=== PATIENT | male | born 1985 | race Caucasian/White ===

== ENCOUNTER 2022-01-18 19:28 | Emergency (ER) | payer OTHER, SELFPAY ==
--- NOTE | ~2022-01-18 | CT_ITS ---
EXAMINATION: CT CHEST WITHOUT CONTRAST CT ABDOMEN AND PELVIS WITH CONTRAST CLINICAL INFORMATION: Trauma COMPARISON: No pertinent prior studies are available for comparison. TECHNIQUE: Multidetector volumetric imaging was performed from the thoracic inlet through the diaphragm without intravenous contrast. Following intravenous contrast administration, multidetector volumetric imaging was obtained from the diaphragm through the pubic symphysis. A total of 85 mL Omnipaque 300 was administered intravenously. Sagittal and coronal images were reformatted. This CT examination was performed using dose optimization techniques as appropriate, variously including the following: *Automated exposure control *Adjustment of mA and/or kV according to patient size (this includes techniques or standardized protocols for targeted exams where dose is matched to indication/reason for exam; i.e. extremities or head) *Use of iterative reconstruction technique DOSE: 820 mGy-cm FINDINGS: -CHEST- LUNG: A few small calcified granulomas are evident in the left perihilar region at the lingula. No consolidation. Central airways are clear. No noncalcified pulmonary nodules. MEDIASTINUM: The mediastinum in normal. The central vascular structures are unremarkable. No hilar or mediastinal lymphadenopathy. PERICARDIUM/PLEURA: No significant effusion. No pleural mass or thickening. CHEST WALL/AXILLA: Unremarkable. -ABDOMEN/PELVIS- LIVER, GALLBLADDER, BILIARY TREE: Relative hypoattenuation of the hepatic parenchyma is consistent with steatosis. The liver is normal in size and shape. No focal hepatic lesion or biliary ductal dilatation is present. The gallbladder is unremarkable with no evidence of radiopaque gallstones, gallbladder wall thickening, or obvious pericholecystic inflammatory changes. PANCREAS: Normal; no mass or surrounding fluid. SPLEEN: Normal size. No focal lesion. ADRENAL GLANDS: Normal; no mass. KIDNEYS AND URETERS: The kidneys are normal in size, shape, and attenuation. No hydronephrosis, hydroureter, or calculi seen. No perinephric stranding. BLADDER: Unremarkable. GASTROINTESTINAL TRACT: Stomach, small bowel, and colon are normal in caliber. No bowel wall thickening or surrounding inflammatory changes. Appendix is normal. No intraperitoneal free fluid or free air. ABDOMINAL WALL: No significant hernia is appreciated. VASCULATURE: Aorta is normal in size. No significant calcific atherosclerotic disease. LYMPH NODES: No lymphadenopathy. . PELVIC VISCERA: The prostate and seminal vesicles are unremarkable. OSSEUS STRUCTURES: No acute fracture or malalignment. Small degenerative osteophytes at the hips. The thoracolumbar spine appears intact without fracture or abnormal alignment. No fractures are identified in the imaged appendicular skeleton. Osseous pelvis is intact. There is a small focus of soft tissue swelling just superficial to the sacrum at the S5 level which may be traumatic in nature. CT/CT abdomen pelvis w con IMPRESSION: Mild focal soft tissue swelling superficial to the S5 segment in the midline, possibly due to soft tissue contusion or a very small hematoma. Otherwise, no acute traumatic injuries are identified in the chest, abdomen, and pelvis. Bones are intact. Hepatic steatosis.
--- NOTE | ~2022-01-18 | CT_ITS ---
. EXAMINATION: CT HEAD WITHOUT CONTRAST CT CERVICAL SPINE WITHOUT CONTRAST CT MAXILLOFACIAL WITHOUT CONTRAST CLINICAL INFORMATION: Trauma. COMPARISON: None. TECHNIQUE: Multidetector volumetric imaging of the head was performed without the administration of intravenous contrast. Images were also obtained with through the cervical spine as well as the facial bones from the frontal sinuses through the mandible. Multiplanar reconstructed images in coronal and sagittal orientations were submitted. This CT examination was performed using dose optimization techniques as appropriate, variously including the following: *Automated exposure control *Adjustment of mA and/or kV according to patient size (this includes techniques or standardized protocols for targeted exams where dose is matched to indication/reason for exam; i.e. extremities or head) *Use of iterative reconstruction technique DOSE: 1386 mGy-cm FINDINGS: HEAD: There is no evidence of acute intracranial hemorrhage or territorial infarction. No abnormal mass-effect or midline shift. No extra-axial fluid collections. Davis to white matter differentiation is well preserved. The ventricles are normal in size and configuration. There is no abnormal attenuation within the brain parenchyma. Calvarium and skull base appear intact. Mastoid air cells are clear. Costophrenic thickening is evident within the ethmoid air cells. There is a polypoid focus in the left maxillary sinus which may correspond to a mucosal retention cyst or polyp. MAXILLOFACIAL: There is a comminuted fracture of the nasal bone with leftward displacement of the fragments. Surrounding soft tissues are swollen and edematous. No additional fractures are identified. There are prominent dental caries at the left second and third mandibular molars with significant periapical osteolysis. The majority of the crown portions of both teeth are eroded. Periapical lucencies consistent with periapical abscess. A few additional dental caries are noted. No additional periapical abscesses. No acute fractures are identified at the mandible, maxilla, pterygoid plates, zygomatic arches, paranasal sinus rahman, and bony orbits are intact. No acute osseous abnormality within the maxillofacial region. Small plate and screw fixation constructs are evident in the mandible at the right diminutive body and left ramus. Hardware is intact. No acute fractures in these regions. As noted above, there is mild mucosal thickening in ethmoid sinuses and a small polypoid focus of soft tissue in the left maxillary sinus, possibly a mucosal retention cyst or polyp. Orbital soft tissues are unremarkable. No post septal abnormalities. Oropharynx and nasopharynx are unremarkable. CERVICAL SPINE: Vertebral body heights are normal. No fractures of the vertebral bodies or posterior elements. Reversal of the normal cervical lordosis is likely positional or degenerative. No vertebral body or posterior element subluxation. The craniocervical and atlantoaxial articulations are normal. There is mild to moderate degenerative disc disease at C5-C6 with endplate and uncovertebral osteophytes and mild loss of intervertebral disc head. A posterior disc osteophyte complex produces mild to moderate central canal stenosis at this level. There is a posterior disc protrusion at the C6-C7 level which also likely produces mild to moderate central canal stenosis. Facet joints are normal. Uncovertebral osteophytes produce neural foraminal encroachment at C5-C6 bilaterally, right side greater than left. No significant paravertebral soft tissue swelling. Cervical soft tissues are unremarkable. Imaged portions of the lung apices are clear. CT/CT cervical spine wo con IMPRESSION: 1. No acute intracranial pathology. 2. Comminuted and mildly displaced fracture of the nasal bone with surrounding soft tissue swelling. 3. No acute fracture or acute malalignment in the cervical spine. 4. Dental caries and apical periodontitis at the left second and third mandibular molars. 5. Mild to moderate degenerative disc disease at C5-C6 with bilateral neural foraminal encroachment. Mild to moderate central canal stenoses are suspected at C5-C6 and C6-C7.
[2022-01-18 20:16] VITALS: BP 103/80; PULSE 123; RESP 24; TEMP 37; O2SAT 96; BMI 26.6
--- NOTE | 2022-01-18 20:27 | ECG_ITS ---
Test Reason : HEAD INJURY Blood Pressure : / mmHG Vent. Rate : 092 BPM Atrial Rate : 092 BPM P-R Int : 126 ms QRS Dur : 080 ms QT Int : 348 ms P-R-T Axes : 064 066 066 degrees QTc Int : 430 ms Normal sinus rhythm Septal infarct , age undetermined Abnormal ECG No previous ECGs available Referred By: Cassidy Gallardo Electronically Signed By:JARED MCKENNA
[2022-01-18] MEDS: iohexoL 300 MG/ML 100 ML INFUS..BTL IV (20:56)
[2022-01-18 21:00] VITALS: BP 132/87; PULSE 98; RESP 16; TEMP 37.2; O2SAT 94
[2022-01-18 21:25] LABS: Basophils Percent Auto 0.2 % (0-2); Eosinophils Percent Auto 0.1 % (0-4); Hematocrit 41.6 % (42.0-52.0); Hemoglobin 14.4 g/dl (14.0-18.0); Imm Gran Pct Auto 0.6 % (0.0-0.4); Lymphocytes Absolute Auto 1.6 X10*3/uL (1.2-4.9); Lymphocytes Percent Auto 9.7 % (20-40); MANUAL DIFF FLAG SCAN; Mean Corpuscular HGB Conc 34.6 g/dl (31.0-36.0); Mean Corpuscular Hemoglobin 31.9 pg (27.0-33.0); Mean Corpuscular Volume 92.2 fL (80.0-98.0); Mean Platelet Volume 8.9 fL (9.4-12.4); Monocytes Absolute Auto 1.9 X10*3/uL (0.1-1.2); Monocytes Percent Auto 11.3 % (2-11); Neutrophils Absolute Auto 13.2 x10*3/uL (2.0-8.3); Neutrophils Percent Auto 78.1 % (45-73); Platelet Count 274 X10*3/uL (160-400); Red Blood Count 4.51 X10*6/uL (4.60-5.80); Red Cell Distribution Width 13.3 % (11.0-16.0); SCAN SMEAR FLAG 1; White Blood Count 16.9 X10*3/uL (4.8-10.8)
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
[2022-01-18 21:38] LABS: Anion Gap 12 (12-20); Blood Urea Nitrogen 8 mg/dL (9-16); Calcium 8.7 mg/dL (8.4-10.2); Carbon Dioxide 25 mmol/L (22-29); Chloride 99 mmol/L (96-108); Creatinine Clr Calc Pharmacy 108.3; Estimated Glomerular Filt Rate > 60; Glucose Random 106 mg/dL (60-115); Potassium 3.8 mmol/L (3.3-5.1); Sodium 132 mmol/L (135-145)
[2022-01-18 21:43] LABS: SLIDE REVIEW VERIFIED
[2022-01-18 21:46] LABS: Troponin-I High Sensitivity < 3.5 ng/L (<3.5-35.0)
[2022-01-18 21:57] VITALS: RESP 16
[2022-01-18] MEDS: Diphth,Pertus(ACell),Tet Adult 0.5 ML SYRINGE IM (21:57)
[2022-01-18] MEDS: Morphine Sulfate 4 MG/ML CARTRIDGE IVPUSH (21:57)
[2022-01-18] MEDS: ondansetron HCL 4 MG/2 ML VIAL IVPUSH (21:58)
[2022-01-18] MEDS: 0.9 % Sodium Chloride 1,000 ML 999 ML IVCONT (21:58)
[2022-01-18 22:08] VITALS: BP 117/68; PULSE 96; RESP 15; TEMP 37.9; O2SAT 92
[2022-01-18] MEDS: Acetaminophen 325 MG TABLET 650 MG PO (23:23)
[2022-01-18] MEDS: Amoxicillin/Potassium Clav 875 MG TABLET PO (23:23)
[2022-01-18] MEDS: oxyCODONE HCl Immed Release 5 MG TABLET PO (23:24)
== END 2022-01-19 00:41 | disposition home or self-care (01) ==
PROVIDERS: Nurse Practitioner Family; Emergency Provider Emergency Medicine; PCP Internal Medicine
DX: S06.0X0A Concussion without loss of consciousness, initial encounter (principal); S02.2XXA Fracture of nasal bones, initial encounter for closed fracture; S00.31XA Abrasion of nose, initial encounter; K04.7 Periapical abscess without sinus; Y04.2XXA Assault by strike against or bumped into by another person, initial encounter; Y93.9 Activity, unspecified; Y92.410 Unspecified street and highway as the place of occurrence of the external cause; Y99.9 Unspecified external cause status
CPT/HCPCS: 36415; 70450; 70486; 71250; 72125; 74177; 80048; 84484; 85025; 90471; 90715; 93005; 96361; 96374; 96375; 99283; 99284; J2270; J2405; Q9967

== ENCOUNTER 2022-01-19 04:46 | Emergency (ER) | payer OTHER, SELFPAY ==
[2022-01-19 04:56] VITALS: BMI 25.0
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
[2022-01-19] MEDS: oxyCODONE HCl Immed Release 5 MG TABLET PO (05:24)
[2022-01-19 05:49] LABS: COVID-19 Test Negative (Negative)
== END 2022-01-19 07:12 | disposition home or self-care (01) ==
PROVIDERS: Emergency Provider Emergency Medicine
DX: S02.2XXA Fracture of nasal bones, initial encounter for closed fracture (principal); R51.9 Headache, unspecified; Y04.8XXA Assault by other bodily force, initial encounter; Y93.9 Activity, unspecified; Y92.9 Unspecified place or not applicable; Y99.9 Unspecified external cause status; Z20.822 Contact with and (suspected) exposure to COVID-19; Z79.899 Other long term (current) drug therapy
CPT/HCPCS: 87635; 99282; 99283

== ENCOUNTER 2022-01-25 09:31 | Emergency (ER) | payer OTHER, SELFPAY ==
--- NOTE | ~2022-01-25 | XR_ITS ---
EXAMINATION: XR CHEST CLINICAL INFORMATION: Chest wall pain COMPARISON: Previous chest CT 01/18/2022 TECHNIQUE: 2 views of the chest were obtained. FINDINGS: No significant abnormality is noted involving the heart, lungs, mediastinum, or soft tissues. There are mild degenerative changes of the spine. XR/XR chest 2V IMPRESSION: No evidence for acute disease in the chest.
[2022-01-25 09:46] VITALS: BP 127/45; PULSE 74; RESP 16; TEMP 35.7; O2SAT 97; BMI 25.8
--- NOTE | 2022-01-25 09:58 | ECG_ITS ---
Test Reason : cp Blood Pressure : / mmHG Vent. Rate : 070 BPM Atrial Rate : 070 BPM P-R Int : 128 ms QRS Dur : 082 ms QT Int : 398 ms P-R-T Axes : 079 078 070 degrees QTc Int : 429 ms Normal sinus rhythm Normal ECG When compared with ECG of 18-JAN-2022 21:01, Criteria for Septal infarct are no longer Present Referred By: Generic ED Physician Electronically Signed By:Spencer Hay
[2022-01-25 10:12] LABS: MANUAL DIFF FLAG NO
[2022-01-25 10:16] LABS: Basophils Percent Auto 0.4 % (0-2); Eosinophils Absolute Auto 0.2 X10*3/uL (0.0-0.4); Eosinophils Percent Auto 2.5 % (0-4); Hematocrit 38.8 % (42.0-52.0); Hemoglobin 13.4 g/dl (14.0-18.0); Imm Gran Abs Auto 0.04 X10*3/uL (0.00-0.03); Imm Gran Pct Auto 0.5 % (0.0-0.4); Lymphocytes Absolute Auto 1.3 X10*3/uL (1.2-4.9); Lymphocytes Percent Auto 16.2 % (20-40); Mean Corpuscular HGB Conc 34.5 g/dl (31.0-36.0); Mean Corpuscular Hemoglobin 32.4 pg (27.0-33.0); Mean Corpuscular Volume 93.7 fL (80.0-98.0); Mean Platelet Volume 8.6 fL (9.4-12.4); Monocytes Absolute Auto 0.7 X10*3/uL (0.1-1.2); Monocytes Percent Auto 8.3 % (2-11); Neutrophils Percent Auto 72.1 % (45-73); Platelet Count 385 X10*3/uL (160-400); Red Blood Count 4.14 X10*6/uL (4.60-5.80); Red Cell Distribution Width 13.1 % (11.0-16.0); White Blood Count 8.3 X10*3/uL (4.8-10.8)
[2022-01-25 10:23] LABS: Ethanol < 10 mg/dL
[2022-01-25 10:32] LABS: Troponin-I High Sensitivity < 3.5 ng/L (<3.5-35.0)
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
[2022-01-25 12:00] VITALS: RESP 18
[2022-01-25 13:52] LABS: COVID-19 Test Negative (Negative)
--- NOTE | 2022-01-25 14:01 | PC.NURSE ---
Pt refusing to speak to care team. Plan to contact provider regarding refusal to communicate.
--- NOTE | 2022-01-25 14:10 | MHC.CARE ---
Pt is refusing to engage with CARE Team.
--- NOTE | 2022-01-25 14:52 | MHC.CARE ---
Plan for detox referral.
[2022-01-25 15:14] LABS: Amphetamine Screen Urine Not Detected (Not Detect); Barbiturates, Urine Not Detected (Not Detect); Benzodiazepines Screen Urine Not Detected (Not Detect); Cannabinoid Screen Urine Not Detected (Not Detect); Cocaine Screen Urine POSITIVE (Not Detect); Fentanyl, urine POSITIVE (Not Detect); Opiate Screen Urine POSITIVE (Not Detect); Phencyclidine Screen Urine Not Detected (Not Detect)
[2022-01-25 15:49] VITALS: BP 109/54; PULSE 73; RESP 16; TEMP 37.2; O2SAT 98
--- NOTE | 2022-01-25 18:29 | MHC.RECOVSUP ---
? Reason for consult Recovery Support o Current location: [facility] o Identified substance use concern: Heroin, Cocaine ,& alcohol - Withdrawal - Seeking ATS (detox) - Support ? Intervention: o ATS bed search [id number] o Community resources provided o Harm reduction discussion ? Plan: o Patient awaiting crisis evaluation o Patient to follow up with [facility] after discharge ? Additional information:Patient is seeking Detox... Patient completed intake and has a bed pending for 945PM @ [facility].. A ride has been set up
== END 2022-01-25 21:03 | disposition other institution (70) ==
PROVIDERS: Physician Assistant; Emergency Provider Emergency Medicine
DX: F19.10 Other psychoactive substance abuse, uncomplicated (principal); R45.851 Suicidal ideations; R07.9 Chest pain, unspecified; Z20.822 Contact with and (suspected) exposure to COVID-19
CPT/HCPCS: 71046; 80307; 82077; 84484; 85025; 87635; 93005; 99284; 99285

== ENCOUNTER 2022-02-05 07:16 | Emergency (ER) | payer OTHER, SELFPAY ==
[2022-02-05 07:20] VITALS: BP 145/65; PULSE 66; RESP 16; TEMP 36.9; O2SAT 96; O2SAT 97; BMI 23.5
--- NOTE | 2022-02-05 07:32 | ED_ITS ---
HPI - Overdose General Chief Complaint: Overdose Stated Complaint: OD,NARCAN GIVEN W/GOOD RESULT PER EMS Time Seen by Provider: 02/05/22 07:32 Source: patient and EMS Mode of arrival: EMS Limitations: no limitations History of Present Illness HPI Narrative: 36-year-old male found on the side of the street by the police unresponsive. Patient responded to 8 mg of Narcan at the scene, patient still semi responsive admitted to using 1 bag of heroin by sniffing today, reviewing old records patient had a history of multiple substance abuse, patient admitted that he comes to [facility] to buy drugs. Patient declined SI or HI or hallucination Related Data Previous Rx's Medication Instructions Recorded amoxicillin 875 mg-potassium 1 tab PO Q12H 10 Days #20 tab 01/18/22 clavulanate 125 mg tablet oxycodone 5 mg tablet 5 mg PO Q8H PRN 3 Days #9 tab 01/18/22 Allergies Allergy/AdvReac Type Severity Reaction Status Date / Time No Known Allergies Allergy Unverified 05/18/20 19:52 [No Known Allergies*] Review of Systems Review of Systems: Yes Unobtainable due to mental status [facility] Past Medical History Medical History Closed fracture nasal bone Social History Social History Patient Tobacco Use Status: Tobacco use Unknown Advance Directives: No Advance Directives Information Provided: No Physical Exam Vital Signs: Vital Signs: Last Vital Signs Temp 98.4 F 02/05/22 07:20 Pulse 78 02/05/22 08:06 Resp 14 02/05/22 08:06 BP 97/49 L 02/05/22 08:06 Pulse Ox 94 02/05/22 08:06 BMI result Body Mass Index 23.5 Vital signs have been reviewed as appeared to be correct. Blood pressure normal. Heart rate normal. Respiration rate normal. Temperature normal. Oxygen saturation normal. Appearance: Lethargic, respond to verbal stimuli No acute distress. Head: Normal external exam. Normocephalic. Atraumatic. No Davis signs noted. No raccoon eyes noted Eyes: PERRLA. EOMI. Conjunctiva and sclera normal. Eyelids normal. ENT: TM's Normal. Pharynx normal. Uvula midline. Moist mucous membranes. No trismus noted. No drooling noted. No muffled voice noted. Neck: Normal inspection. Neck supple. FROM. No adenopathy. Thyroid Normal. No meningeal signs. No neck mass noted. CVS: Normal heart rate and rhythm. Heart sound normal. No murmurs noted. Pulses normal throughout. Respiratory: No respiratory distress. Painless inspiration. Breath sounds normal. No wheezes/rales/rhonchi noted. Chest nontender. No accessory muscle usage noted or decreased air movement noted. Abdomen: Soft and nontender. Bowel sounds normal in all 4 quadrants. No distention noted. No organomegaly noted. No visible injury noted. Back: No CVA tenderness. Full range of motion noted. Skin: Skin warm and dry. Normal skin color. Normal skin turgor. No rashes/lesions/lacerations noted. Extremities: No lower extremity edema. Extremities exhibit normal range of motion. Extremities nontender. Neuro: Semi responsive to verbal stimuli Cranial nerve exam: II-XII are grossly intact No motor deficit. No sensory deficit. Reflexes normal. Course Course Course Narrative: Patient now is awake and alert and oriented x3, no SI, no HI, no hallucination, patient do not want to talk to care team. Will discharge with Narcan to take home. Discharge Plan Discharge Clinical Impression: Drug overdose Patient Disposition: Home, Self-Care Instructions: Adult Overdose (ED) Prescriptions: No Action amoxicillin-pot clavulanate 875-125 mg tablet 1 tab PO Q12H 10 Days Qty: 20 0RF oxycodone 5 mg tablet 5 mg PO Q8H PRN (Reason: pain) 3 Days Qty: 9 0RF Rx Instructions: Nasal bone fractures
[2022-02-05] MEDS: Naloxone HCl Nasal 4 MG SPRAY NOSTRILALT (07:45)
[2022-02-05 08:06] VITALS: BP 97/49; PULSE 78; RESP 14; O2SAT 94
--- NOTE | 2022-02-05 10:57 | PC.NURSE ---
pt demanding food, given a pudding and cheesestick. demanding a sandwich, told that there are no sandwiches in fridge at this time, pt sts im gonna go over and check, you liar! . pt remains lying in stretcher. continues to speak rudely to all staff who walk by.
--- NOTE | 2022-02-05 12:21 | PC.NURSE ---
PT AGITATED AND VERBALLY INAPPROPRIATE AT TIME OF DISCHARGE ENCOUNTER. HE IS THROWING EMPTY FOOD AND DRINK CONTAINERS. HE IS REFUSING TO PLACE HIS MASK ON. HE WAS GIVEN TAKE HOME NARCAN AND D/C PAPERS. [facility] WAS CALLED FOR POSSIBLE TRANSPORT HOME- EST TIME 1 HR. PT WAS AMBULATORY TO SECURITY TO RETRIEVE BELONGINGS. HE REMAINED DEROGATORY AT THIS NURSE- GO HOME YOU'RE ALL MEAN YOU SUCK AT NURSING [facility]
== END 2022-02-05 13:49 | disposition home or self-care (01) ==
PROVIDERS: Emergency Provider Emergency Medicine
DX: R40.4 Transient alteration of awareness (principal); T40.1X1A Poisoning by heroin, accidental (unintentional), initial encounter; Y92.480 Sidewalk as the place of occurrence of the external cause; F19.10 Other psychoactive substance abuse, uncomplicated
CPT/HCPCS: 99283; 99284

== ENCOUNTER 2022-02-14 03:41 | Emergency (ER) | payer OTHER, SELFPAY ==
--- NOTE | ~2022-02-14 | XR_ITS ---
EXAMINATION: XR CHEST CLINICAL INFORMATION: Cough COMPARISON: 01/25/2022 TECHNIQUE: Frontal view of the chest was obtained. FINDINGS: No significant abnormality is noted involving the heart, lungs, mediastinum, bony thorax or soft tissues. XR/XR chest 1V IMPRESSION: Unremarkable examination.
[2022-02-14 03:43] VITALS: BP 137/68; PULSE 92; RESP 20; TEMP 36.7; O2SAT 99; BMI 26.6
[2022-02-14 04:00] VITALS: BP 133/69; PULSE 69; RESP 16; TEMP 36.9; O2SAT 98
[2022-02-14 04:16] LABS: IDNOW Serial# 16C4AD1C; Influenza A Negative (Negative); Influenza B2 Negative (Negative)
[2022-02-14 04:17] LABS: COVID-19 Test Negative (Negative)
--- NOTE | 2022-02-14 05:08 | ED.GENADULT ---
HPI - General Adult General Chief complaint: General Medical Stated complaint: SOB, cough, weakness, congestion, n/d/v Time Seen by Provider: 02/14/22 05:04 Source: patient Mode of arrival: ambulatory Limitations: no limitations History of Present Illness HPI narrative: Patient comes to the emergency room complaining of coughing for 1 day. Complaining of intermittent shortness of breath, no chest pain, complaining of productive cough or any sputum, diarrhea that started today. Related Data Previous Rx's Medication Instructions Recorded amoxicillin 875 mg-potassium 1 tab PO Q12H 10 days #20 tabs 01/18/22 clavulanate 125 mg tablet oxycodone 5 mg tablet 5 mg PO Q8H PRN pain 3 days #9 tabs 01/18/22 benzonatate 100 mg capsule 100 mg PO TID PRN cough #10 caps 02/14/22 Allergies Allergy/AdvReac Type Severity Reaction Status Date / Time No Known Allergies Allergy Verified 02/14/22 03:43 [No Known Allergies*] Review of Systems Review of Systems: Constitutional : No Weight loss, No Fever, No Chills, No Night Sweats, No Fatigue, No Malaise ENT/Mouth : No Hearing loss, No Ear Pain, No Nasal Congestion, No Sinus Pain, No Hoarseness, No sore throat, No Rhinorrhea, No Swallowing Difficulty Eyes: No Eye Pain, No Swelling, No Redness, No Foreign Body, No Discharge, No Vision Changes Cardiovascular : No Chest Pain, No SOB, No Dyspnea on Exertion, No Orthopnea, No Edema, No Palpitations Respiratory : Complaining of productive cough, No Sputum, No Wheezing, No Smoke Exposure, No Dyspnea Gastrointestinal : No Nausea, No Vomiting, No Diarrhea, No Constipation, No abdominal Pain, No Hematochezia, No Melena Genitourinary : no irregular bleeding, No Dysuria, No Urinary Frequency, No Hematuria, No Urinary Incontinence, No Urgency, No Flank Pain, No Urinary Flow Changes, No Hesitancy Musculoskeletal : No joint pain, No Myalgias, No Joint Swelling Skin : No Skin Lesions, No rash Neuro : No Weakness, No Numbness, No Paresthesias, No Loss of Consciousness, No Dizziness, No Headache Psych : No Anxiety/Panic, No Depression, No SI/HI/AH/VH, No Social Issues, Heme/Lymph: No Bruising, No Bleeding,No Lymphadenopathy Endocrine : No Polyuria, No Polydipsia, No Temperature Intolerance [facility] Past Medical History Medical History (Updated 02/14/22 @ 06:03 by Aylin Stewart MD) Closed fracture nasal bone Substance abuse Social History Social History Patient Tobacco Use Status: Tobacco use Unknown Advance Directives: No Advance Directives Information Provided: Yes Physical Exam ED Vital Signs: Vital Signs - 24 hr 02/14/22 03:43 02/14/22 04:00 Temperature 98.0 F 98.5 F Pulse Rate 92 69 Respiratory Rate 20 16 Blood Pressure 137/68 133/69 Pulse Oximetry 99 98 Oxygen Delivery Method Room Air Room Air BMI result Body Mass Index 26.6 Course Course Course Narrative: Patient had a negative COVID and influenza test. Chest x-ray negative. Medical Decision Making Lab Data Labs: Lab Results 02/14/22 02/14/22 Range/Units 03:52 03:52 COVID-19 (NATALIA) Negative (Negative) COVID-19 Clin Com See Note Influenza Type A (TARA) Negative (Negative) Influenza Type B (TARA) Negative (Negative) Influenza A & B Note See Note Imaging Data Chest x-ray: Radiologist's impression: INDINGS: No significant abnormality is noted involving the heart, lungs, mediastinum, bony thorax or soft tissues. XR/XR chest 1V IMPRESSION: Unremarkable examination. Discharge Plan Discharge Clinical Impression: Acute viral bronchitis Patient Disposition: Home, Self-Care Instructions: Acute Bronchitis (ED) Additional Instructions: Please follow-up with your primary care physician tomorrow. If you have any worsening or new symptoms, please return to the emergency room or call 911 Prescriptions: New benzonatate 100 mg capsule 100 mg PO TID PRN (Reason: cough) Qty: 10 0RF No Action amoxicillin-pot clavulanate 875-125 mg tablet 1 tab PO Q12H 10 Days Qty: 20 0RF oxycodone 5 mg tablet 5 mg PO Q8H PRN (Reason: pain) 3 Days Qty: 9 0RF Rx Instructions: Nasal bone fractures
[2022-02-14] MEDS: Benzonatate 100 MG CAPSULE 200 MG PO (05:35)
[2022-02-14] MEDS: Ondansetron ODT 4 MG TAB.RAPDIS TRANSLINGU (05:45)
--- NOTE | 2022-02-14 06:31 | PC.NURSE ---
pt no longer vomiting or caughing. pt is ready for discharge.
== END 2022-02-14 06:29 | disposition home or self-care (01) ==
PROVIDERS: Emergency Provider Emergency Medicine; PCP Internal Medicine
DX: J20.8 Acute bronchitis due to other specified organisms (principal); Z20.822 Contact with and (suspected) exposure to COVID-19
CPT/HCPCS: 71045; 87502; 87635; 99283

== ENCOUNTER 2022-02-15 01:18 | Emergency (ER) | payer OTHER, SELFPAY ==
[2022-02-15 01:25] VITALS: BP 160/100; PULSE 110; PULSE 84; RESP 20; TEMP 36.7; O2SAT 98; O2SAT 99; BMI 27.4
--- NOTE | 2022-02-15 02:05 | ED.EXTPRO ---
HPI - Extremity Problem General Chief complaint: Overdose Stated complaint: od Time Seen by Provider: 02/15/22 01:40 Source: patient Mode of arrival: EMS History of Present Illness HPI Narrative: Patient overdosed on heroin complaining of right leg pain no fall no injury patient was given 4 mg of Narcan by the police saturating 99% at room air apparently was found next to the laboratory with his left leg under the right leg that maybe the causing the pain in the right thigh area but no fall or any injury Related Data Previous Rx's Medication Instructions Recorded amoxicillin 875 mg-potassium 1 tab PO Q12H 10 days #20 tabs 01/18/22 clavulanate 125 mg tablet oxycodone 5 mg tablet 5 mg PO Q8H PRN pain 3 days #9 tabs 01/18/22 benzonatate 100 mg capsule 100 mg PO TID PRN cough #10 caps 02/14/22 Allergies Allergy/AdvReac Type Severity Reaction Status Date / Time No Known Allergies Allergy Verified 02/14/22 03:43 [No Known Allergies*] Review of Systems Review of Systems: Yes all other systems are reviewed and are negative [facility] Past Medical History Medical History Closed fracture nasal bone Substance abuse Social History Social History Patient Tobacco Use Status: Tobacco use Unknown Physical Exam Vital Signs: Vital Signs: Last Vital Signs Temp 98.1 F 02/15/22 01:25 Pulse 110 H 02/15/22 01:25 Resp 20 02/15/22 01:25 Pulse Ox 99 02/15/22 01:25 O2 Del Method 02/15/22 01:25 BMI result Body Mass Index 27.4 Appearance: Alert. Oriented X3. No acute distress. Eyes: PERRLA, No Nystagmus ENT: Pharynx normal. Oral Mucosa moist Neck: Normal inspection. Neck supple. CVS: Normal heart rate and rhythm. Pulses normal. Respiratory: No respiratory distress. Equal air entry bilateral, no wheezing/rales/rhonchi Abdomen: Soft and nontender. Bowel sounds are present, no mass palpable, no CVA tenderness Skin: Skin warm and dry. Normal skin color. Normal skin turgor. Extremities: No lower extremity edema. No calf tenderness no calf muscle swelling no tenderness on palpation Neuro: Oriented X 3. No motor deficit. No sensory deficit.No cerebellar signs , cranial nerves II-XII intact MDM - Extremity (Nontraumatic) MDM Narrative Medical decision making narrative: Patient with muscle pain in the right thigh apparently because he lay down for few minutes under the effect of the heroin . Patient urine is negative for RBCs unlikely his rhabdomyolysis as patient was not on the floor for a long time. Lab Data Attestation: I reviewed the patient's lab results. Labs: Lab Results 02/15/22 02/15/22 Range/Units 02:03 02:04 Urine Color DK YELLOW Urine Appearance CLEAR Urine pH 5.5 (5.0-8.0) Ur Specific [place] >= 1.030 H (1.005-1.025) Urine Protein 1+ H (NEG-TRACE) MG/DL Urine Glucose (UA) NEG (NEG) MG/DL Urine Ketones 5 (NEG) MG/DL Urine Blood NEG (NEG) Urine Nitrite NEG (NEG) Ur Leukocyte Esterase NEG (NEG) Urine RBC 0-2 (0) /HPF Urine WBC 0-2 (0-4) /HPF Ur Squamous Epith Cells NONE /LPF Calcium Phosphate Cryst 1+ /LPF Urine Bacteria NONE /LPF Urine Mucus 2+ /LPF Urine Opiates Screen POSITIVE H (Not Detect) Urine Fentanyl Screen POSITIVE H (Not Detect) Ur Barbiturates Screen Not Detected (Not Detect) Ur Phencyclidine Scrn Not Detected (Not Detect) Ur Amphetamines Screen Not Detected (Not Detect) U Benzodiazepines Scrn Not Detected (Not Detect) Urine Cocaine Screen POSITIVE H (Not Detect) U Marijuana (THC) Screen Not Detected (Not Detect) Discharge Plan Discharge Clinical Impression: Myalgia Patient Disposition: Home, Self-Care Instructions: Musculoskeletal Pain (ED) Additional Instructions: Take ibuprofen for pain as needed every 6 hours Drink plenty of fluids Prescriptions: No Action amoxicillin-pot clavulanate 875-125 mg tablet 1 tab PO Q12H 10 Days Qty: 20 0RF oxycodone 5 mg tablet 5 mg PO Q8H PRN (Reason: pain) 3 Days Qty: 9 0RF Rx Instructions: Nasal bone fractures benzonatate 100 mg capsule 100 mg PO TID PRN (Reason: cough) Qty: 10 0RF
[2022-02-15 02:08] LABS: Appearance Urine CLEAR; Color Urine DK YELLOW; Glucose Urine UA NEG (NEG); Leukocyte Esterase Urine NEG (NEG); Nitrite Urine NEG (NEG); PH 5.5 (5.0-8.0); Specific Gravity - Urine >= 1.030 (1.005-1.025); UACC Culture Trigger NO; Urine Blood NEG (NEG); Urine Ketones 5 MG/DL (NEG); Urine Protein 1+ MG/DL (NEG-TRACE)
[2022-02-15 02:13] LABS: Calcium Phosphate Crystals Ur 1+ /LPF; Mucus Urine 2+ /LPF; RBC Urine 0-2 /HPF (0); WBC Urine 0-2 /HPF (0-4)
[2022-02-15 02:23] LABS: Amphetamine Screen Urine Not Detected (Not Detect); Barbiturates, Urine Not Detected (Not Detect); Benzodiazepines Screen Urine Not Detected (Not Detect); Cannabinoid Screen Urine Not Detected (Not Detect); Cocaine Screen Urine POSITIVE (Not Detect); Fentanyl, urine POSITIVE (Not Detect); Opiate Screen Urine POSITIVE (Not Detect); Phencyclidine Screen Urine Not Detected (Not Detect)
== END 2022-02-15 03:16 | disposition home or self-care (01) ==
PROVIDERS: Emergency Provider Internal Medicine; PCP Internal Medicine
DX: M79.18 Myalgia, other site (principal); F11.10 Opioid abuse, uncomplicated
CPT/HCPCS: 80307; 81001; 99282; 99283

== ENCOUNTER 2022-04-09 04:20 | Emergency (ER) | payer OTHER, SELFPAY ==
[2022-04-09 04:24] VITALS: BP 114/63; PULSE 117; O2SAT 96
[2022-04-09 04:29] VITALS: BP 110/70; PULSE 92; RESP 16; TEMP 36.5; O2SAT 95; BMI 23.5
[2022-04-09 04:32] VITALS: PULSE 104; RESP 10; O2SAT 98
--- NOTE | 2022-04-09 04:50 | ED.OVERDOSE ---
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 girlfriend tonight then used 1/2 bag of heroin tonight and overdosed, no trauma reported given 4mg narcan [place] by PD x 2 and bagged, then bagged by EMS and given 2mg IN narcan complaint: accidental overdose Onset (ago): minute(s) (just prior to arrival ) Context: Accidental Overdose: wanted to get high Associated symptoms: nausea/vomiting Treatments Prior to Arrival: oxygen (bagged by P) and narcan (10mg in narcan ) Related Data Home Medications Medication Instructions Recorded Confirmed No Known Home Meds 04/09/22 04/09/22 Allergies Allergy/AdvReac Type Severity Reaction Status Date / Time No Known Allergies Allergy Verified 02/14/22 03:43 [No Known Allergies*] Review of Systems Review of Systems: Constitutional : No Fever, No Chills ENT/Mouth : No sore throat, No Rhinorrhea Eyes: No Eye Pain, No Swelling, No Redness Cardiovascular : No Chest Pain, No SOB Respiratory : No Cough, No Sputum, No Wheezing Gastrointestinal : No Nausea, No Vomiting, No Diarrhea Genitourinary : No Dysuria, No Urinary Frequency, No Hematuria, Musculoskeletal : No joint pain, No Myalgias, No Joint Swelling Skin : No Skin Lesions, No rash Neuro : No Weakness, No Numbness, No Dizziness, No Headache Psych : No Anxiety/Panic, No Depression, no SI Heme/Lymph: No Bruising, No Bleeding,No Lymphadenopathy Endocrine : No Polyuria, No Polydipsia All other systems reviewed and are negative [facility] Past Medical History Attestation statement: The following information was validated with the patient. Medical History Closed fracture nasal bone Substance abuse Social History Social History Patient Tobacco Use Status: Tobacco use Unknown Advance Directives: No Advance Directives Information Provided: Yes Physical Exam Vital Signs: Vital Signs: Last Vital Signs Temp 97.7 F 04/09/22 06:00 Pulse 84 04/09/22 06:24 Resp 10 L 04/09/22 06:24 BP 102/48 L 04/09/22 06:00 Pulse Ox 94 04/09/22 06:24 O2 Del Method 04/09/22 06:24 BMI result Body Mass Index 23.5 Appearance: Alert. Oriented X3. No acute distress. Eyes: Pupils equal, round and reactive to light. ENT: Pharynx normal. Neck: Normal inspection. Neck supple. CVS: Normal heart rate and rhythm. Pulses normal. Respiratory: No respiratory distress. Breath sounds normal. Abdomen: Soft and non-tender. Skin: Skin warm and diaphoretic. Normal skin color. Normal skin turgor. Extremities: No lower extremity edema. Neuro: Oriented X 3. No motor deficit. No sensory deficit. Course Course Course Narrative: signed out to Dr. Kelly pending he wakes up more when he does stable for DC MDM - Overdose MDM Narrative Medical decision making narrative: 36 yo male s/p accidental heroin overdose here with no SI but did require 10mg IN narcan in response to overdose. At this time he declines detox and SUDE evaluation. He will need narcan to take home and observation. Discharge Plan Discharge Clinical Impression: Opiate overdose Patient Disposition: Still a Patient Instructions: Adult Overdose (ED) Additional Instructions: return to ED for any worsening symptoms or concerns please carry narcan with you Prescriptions: No Action No Known Home Meds
[2022-04-09 06:00] VITALS: BP 102/48; PULSE 81; RESP 12; TEMP 36.5; O2SAT 94
[2022-04-09] MEDS: Naloxone HCl Nasal TAKE HOME 4 MG SPRAY NOSTRILALT (06:19)
[2022-04-09 06:24] VITALS: PULSE 84; RESP 10; O2SAT 94
== END 2022-04-09 09:34 | disposition home or self-care (01) ==
PROVIDERS: Emergency Provider Emergency Medicine; PCP Internal Medicine
DX: T40.1X1A Poisoning by heroin, accidental (unintentional), initial encounter (principal); X58.XXXA Exposure to other specified factors, initial encounter; F19.10 Other psychoactive substance abuse, uncomplicated
CPT/HCPCS: 99284; 99285

== ENCOUNTER 2022-04-10 14:54 | Emergency (ER) | payer OTHER, SELFPAY ==
[2022-04-10 15:11] VITALS: BP 127/85; RESP 20; O2SAT 98; BMI 25.0
--- NOTE | 2022-04-10 15:20 | ED.OVERDOSE ---
HPI - Overdose General Chief Complaint: Overdose Stated Complaint: OVERDOSE, 8 MG NARCAN Time Seen by Provider: 04/10/22 15:05 Source: patient, EMS and old records reviewed Mode of arrival: EMS Limitations: no limitations History of Present Illness HPI Narrative: 36 yo male presents after unintentional heroin overdose. He said he was walking on the street when he significant bag of heroin. Does not remember anything after that. He the next thing he knew he was at the hospital. EMS reports that police administered 8 mg of Narcan. He woke up after this. He states he was also here on Friday after he overdosed. He is not interested in any detox. He states he feels ?good? and wants to go home. He is trying to rip out his IV. Multiple security staff at the bedside. MD complaint: accidental overdose Onset (ago): minute(s) Intent: unwilling to say Context: Accidental Overdose: wanted to get high Treatments Prior to Arrival: narcan Related Data Home Medications Medication Instructions Recorded Confirmed No Known Home Meds 04/09/22 04/09/22 Allergies Allergy/AdvReac Type Severity Reaction Status Date / Time No Known Allergies Allergy Verified 02/14/22 03:43 [No Known Allergies*] Review of Systems Review of Systems: Constitutional: No Fever, No Chills ENT/Mouth: No sore throat, No Rhinorrhea Cardiovascular: No Chest Pain, No SOB Respiratory: No Cough, No Sputum Gastrointestinal: No Nausea, No Vomiting, No Diarrhea, No abdominal Pain Musculoskeletal: No joint pain, + Myalgias Skin: No Skin Lesions, No rash Neuro: No Weakness, No Dizziness, No Headache Psych: No Anxiety/Panic, No Depression, No SI Heme/Lymph: No Bruising PMFSH Past Medical History Medical History Closed fracture nasal bone Substance abuse Social History Social History Patient Tobacco Use Status: Tobacco use Unknown Advance Directives: No Advance Directives Information Provided: No Physical Exam Vital Signs: Vital Signs: Last Vital Signs Resp 20 04/10/22 15:11 BMI result Body Mass Index 25.0 Appearance: Alert. Oriented X3. No acute distress. Eyes: Pupils equal, round and reactive to light. ENT: Pharynx normal. Neck: Normal inspection. Neck supple. CVS: Normal heart rate and rhythm. Pulses normal. Respiratory: No respiratory distress. Breath sounds normal. Abdomen: Soft and nontender. +BS x4 Skin: Skin warm and dry. Normal skin color. Normal skin turgor. No rashes. Extremities: No lower extremity edema. No track cedeño in the upper extremities. Neuro: Oriented X 3. No motor deficit. No sensory deficit. Awake and alert, pacing in the emergency room, yelling at staff saying he wants to go home. Course Course Course Narrative: 36-year-old male presents to the ER for recurrent opiate overdose. He was given 8 mg of Narcan by police. He writes the ER awake alert, agitated with staff. He states he wants to go home. He is not interested in detox or speaking with asset recovery specialist. Multiple security members are at the bedside trying to redirect him. The IV was removed by nursing. Patient was counseled on risks of leaving the emergency department prior to adequate monitoring and observation, risks of leaving include recurrent respiratory depression, altered mental status and potential . He accepts the risks and wants to leave. He appears to be clinically sober and and is able to make his own decisions at this time. Intranasal Narcan was provided to the patient and he was escorted out of the emergency department by staff. Critical Care Time Critical Care Time Critical Care Time: No Discharge Plan Discharge Clinical Impression: Drug overdose Patient Disposition: Left Against Medical Advice Instructions: Adult Overdose (ED) Additional Instructions: DO NOT USE HEROIN, IT CAN KILL YOU Recommend detox Use the provided Narcan if needed for lethargy after drug use Prescriptions: No Action No Known Home Meds
== END 2022-04-10 15:26 | disposition left against medical advice (07) ==
PROVIDERS: Emergency Provider Internal Medicine
DX: T40.1X1A Poisoning by heroin, accidental (unintentional), initial encounter (principal); M79.10 Myalgia, unspecified site; F19.10 Other psychoactive substance abuse, uncomplicated; Y92.9 Unspecified place or not applicable; R45.1 Restlessness and agitation
CPT/HCPCS: 99282